=== PATIENT | male | born 1980 | race Asian ===

== ENCOUNTER 2024-09-22 17:12 | Emergency (ER) | payer MEDICAID ==
[~2024-09-22] VITALS: Ht 167.6 cm; Wt 66.8 kg
[2024-09-22 17:18] VITALS: TEMP 98.3
--- NOTE | 2024-09-22 18:20 | Physician Documentation ---
History of Present Illness ~ Chief Complaint: Sore Throat Stated Complaint: ABCESS Time Seen by MD: 18:19 HPI Patient presents to the emergency room with one-week history of sore throat. He has been placed on Augmentin and prednisone an outside clinic. Symptoms continued to worsen he feels swelling in the back of his throat. Subjective fevers. Taking Tylenol for pain. Medication Reconciliation Allergies: Coded Allergies: No Known Allergies (Unverified , 09/22/24) Review of Systems ROS All review of systems negative except as per HPI Physical Exam Vital Signs: Temperature: 98.3, Source: Oral, Heart Rate: 94, Respiratory Rate: 16, BP: 133/84, Pulse Oximetry: 100, Weight: 66.800 Oxygen Flow Rate: 0 Physical Exam General: Patient is awake, alert, oriented x4 in no acute distress Head: Normocephalic and atraumatic. Eyes: Conjunctival normal. EOMI. PERRL. ENT: Mucous membranes moist. Right peritonsillar abscess with swelling crossing the midline. Hot potato voice. Maintaining secretions Neck: Supple, trachea is midline. Chest: Clear to auscultation bilaterally without rales, rhonchi, or wheezes. There is no accessory muscle use or retractions. Cardiac: RRR without murmurs, gallops, or rubs. Procedures Procedures A tonsillar abscess aspiration: Status post informed written consent patient was sat upright position. 18 gauge needle with guard utilized to anesthetize patient's peritonsillar abscess along with gargling viscous lidocaine. 18. Gauge utilized with guard to aspirate x3 with good amount of purulence expressed, a proximally 2 cc. Patient tolerated procedure well without complication. Total time of procedure 10 minutes Progress Results/Orders Results/Orders Orders - TRAVON JC MD Culture Blood (09/22/24 18:20) Completed Orders - TRAVON JC MD Procalcitonin (09/22/24 18:20) Lacticsepsis (09/22/24 18:20) Dexamethasone Inj (Decadron 10mg/Ml Inj) (09/22/24 18:23) Normal Saline 1000ml (Sodium Chloride 10 (09/22/24 18:25) Ceftriaxone/N3y-Lhfzuupy 1gm (Rocephin 1 (09/22/24 18:25) Ketorolac Trometh 15mg/Ml Vial (Toradol (09/22/24 18:25) Ondansetron Inj. (Zofran 4mg/2ml Vial) (09/22/24 18:25) Fentanyl/Pf (Fentanyl 0.05 Mg/Ml Syringe (09/22/24 18:25) Lidocaine 2% Viscous (Xylocaine 2% Visco (09/22/24 18:30) Lidocaine 1% W/Epi 1:100,000 (Xylocaine (09/22/24 18:30) Iohexol 300mg/Ml 100ml Inj. (Omnipaque-3 (09/22/24 18:52) Medications Received in ER Medications (Trade) Dose Ordered Sig/[place] Route PRN Reason Start Time Stop Time Status Last Admin Dose Admin (Decadron 10mg/ ml inj) 10 mg ONCE STAT IV 09/22/24 18:23 09/22/24 18:25 DC 09/22/24 19:11 10 MG Sodium Chloride 1,000 ml @ 1,000 mls/hr ONCE ONCE IV 09/22/24 18:25 09/22/24 19:24 DC 09/22/24 19:24 1,000 MLS/HR Ceftriaxone Sodium 50 ml @ 100 mls/hr ONCE ONCE IV 09/22/24 18:25 09/22/24 18:54 DC 09/22/24 19:24 100 MLS/HR (Toradol injection) 15 mg ONCE ONCE IV 09/22/24 18:25 09/22/24 18:26 DC 09/22/24 19:10 15 MG (Zofran 4mg/2ml vial) 4 mg ONCE ONCE IV 09/22/24 18:25 09/22/24 18:26 DC 09/22/24 19:08 4 MG (fentaNYL 0.05 MG/ML syringe) 25 mcg ONCE ONCE IV 09/22/24 18:25 09/22/24 18:26 DC 09/22/24 19:16 25 MCG Vital Signs 09/22/24 09/22/24 09/22/24 09/22/24 17:18 18:45 18:45 19:10 Temp 98.3 Pulse 94 76 Resp 16 16 16 B/P (MAP) 133/84 117/74 (88) Pulse Ox 100 100 O2 Flow Rate 0 0 09/22/24 19:16 Resp 16 Laboratory Tests Test 09/22/24 17:43 09/22/24 18:29 White Blood Count 10.3 Red Blood Count 4.19 L Hemoglobin 12.5 L Hematocrit 36.9 L Mean Corpuscular Volume 88.1 Mean Corpuscular Hemoglobin 29.9 Mean Corpuscular Hemoglobin Concent 34.0 Red Cell Distribution Width 12.7 Platelet Count 302 Mean Platelet Volume 7.6 Neutrophils (%) (Auto) 73.3 Lymphocytes (%) (Auto) 16.3 L Monocytes (%) (Auto) 9.6 Eosinophils (%) (Auto) 0.4 Basophils (%) (Auto) 0.4 Neutrophils # (Auto) 7.5 Lymphocytes # (Auto) 1.7 Monocytes # (Auto) 1.0 H Eosinophils # (Auto) 0.0 Basophils # (Auto) 0.0 CBC Comment Sodium Level 142 Potassium Level 3.0 *L Chloride Level 104 Carbon Dioxide Level 29.0 Anion Gap 9 Blood Urea Nitrogen 11 Creatinine 0.90 Estimated GFR/1.73 m2 > 90 BUN/Creatinine Ratio 12.2 Glucose Level 157 H Calcium Level 8.8 Total Bilirubin 0.5 Aspartate Amino Transf (AST/SGOT) 20 Alanine Aminotransferase (ALT/SGPT) 35 Alkaline Phosphatase 79 Total Protein 7.4 Albumin 3.4 Globulin 4.0 Albumin/Globulin Ratio 0.9 L Procalcitonin < 0.05 Chemistry Comments Lactic Acid Level 0.9 Medical Decision Making Findings Patient presented to the emergency room with throat swelling and pain. Differentials include but are not limited to retropharyngeal abscess, peritonsillar abscess, strep pharyngitis, herpangina. Physical exam shows significant swelling with hot potato voice therefore CT scan was performed which confirms peritonsillar abscess with no retropharyngeal abscess. Patient is status post abscess aspiration with good results. We will add an additional antibiotic along with some additional steroids. ER precautions discussed. Departure Disposition: HOME / SELF CARE / HOMELESS Impression: Primary Impression: Peritonsillar abscess Condition: Improved Discharge Instructions: Peritonsillar Abscess, [id number] Departure Forms: Excuse form Work or School Excused From: Work Excuse beginning now through the following date: September 24, 2024 May Return but still avoid physical Activity from now until: September 24, 2024 May Return to full physical activity as of: September 24, 2024 Referrals: NO PRIMARY CARE PROVIDER (PCP) Prescriptions Prednisone* (Prednisone*) 20 Mg Tablet 1 TAB PO DAILY for 5 Days, #5 TAB Prov: TRAVON JC MD 09/22/24 Clindamycin HCl (Clindamycin HCl) 300 Mg Capsule 1 CAP PO Q12H for 7 Days, #14 CAP Prov: TRAVON JC MD 09/22/24 Education Educated: Patient Educated regarding: diagnosis, treatment, need for follow up Signature Scribe Signature: No scribe Attestation: The note accurately reflects work and decisions made by me.Travon Jc MD 09/22/24 20:08 TRAVON JC MD September 22, 2024 18:20
[2024-09-22 18:26] LABS: BASOPHILS % (AUTO) 0.4 % (0-1); EOSINOPHILS % (AUTO) 0.4 % (0-6); HEMATOCRIT 36.9 % (42.0-52.0); HEMOGLOBIN 12.5 g/dl (14.0-17.9); LYMPHOCYTES # (AUTO) 1.7 X10'3 (1.1-4.8); LYMPHOCYTES % (AUTO) 16.3 % (21-51); MEAN CORPUSCULAR HEMOGLOBIN 29.9 PG (27.0-31.0); MEAN CORPUSCULAR VOLUME 88.1 FL (78-98); MEAN PLATELET VOLUME 7.6 FL (7.4-10.4); MONOCYTES % (AUTO) 9.6 % (2-12); NEUTROPHILS # (AUTO) 7.5 X10'3 (1.8-7.7); NEUTROPHILS % (AUTO) 73.3 % (42-75); PLATELET COUNT 302 X10'3 (140-440); RED BLOOD COUNT 4.19 X10'6 (4.70-6.10); RED CELL DISTRIBUTION WIDTH 12.7 % (11.5-14.5); WHITE BLOOD COUNT 10.3 X10'3 (4.5-11.0)
[2024-09-22] MEDS: LIDOcaine 1% W/epiNEPHrine 1:100,000 20ml vial IJ ONE (18:30)
[2024-09-22] MEDS: LIDOcaine 2% Viscous 15ml cup MM ONE (18:30)
[2024-09-22 18:31] LABS: ALANINE AMINOTRANSFERASE 35 U/L (12-78); ALBUMIN 3.4 G/DL (3.4-5.0); ALBUMIN/GLOBULIN RATIO 0.9 (1.1-1.5); ALKALINE PHOSPHATASE 79 IU/L (46-116); ANION GAP 9 (8-16); ASPARTATE AMINO TRANSFERASE 20 U/L (10-37); BILIRUBIN,TOTAL 0.5 MG/DL (0.1-1.0); BLOOD UREA NITROGEN 11 MG/DL (7-18); BUN/CREATININE RATIO 12.2 (10.0-20.0); CALCIUM 8.8 MG/DL (8.5-10.1); CHLORIDE 104 MMOL/L (99-107); GLUCOSE 157 MG/DL (70-104); SODIUM 142 MMOL/L (135-145); TOTAL PROTEIN 7.4 G/DL (6.4-8.2); eCRCL 94 ML/MIN; eGFR > 90 ML/MIN
[2024-09-22] MEDS ORDERED: iohexol 300mg/ml 100ml inj. ONE (18:52)
[2024-09-22] MEDS: ondansetron/PF 4mg/2ml inj IV ONE (19:08)
[2024-09-22] MEDS: ketorolac trometh 15mg/ml vial 15 MG/ML ML IV ONE (19:10)
[2024-09-22] MEDS: dexamethasone sod phosphate 10mg/ml inj IV STA (19:11)
[2024-09-22] MEDS: fentaNYL/PF 50MCG/1 ML 2ML syringe IV ONE (19:16)
[2024-09-22] MEDS: CefTRIAXone/D5W-Rocephin 1gm 50 ML IV ONE (19:24)
[2024-09-22] MEDS: normal saline 1000ml 1,000 ML IV ONE (19:24)
--- NOTE | 2024-09-22 19:46 | RADIOLOGY REPORT ---
EXAM: CT CT NECK SOFT TISSUES W/ IV CONTRAST INDICATION: abscess Exam Date: 09/22/2024 06:56 PM COMPARISON: None TECHNIQUE: CT of the neck with intravenous contrast. RADIATION DOSE: CTDIvol: mGy, DLP: mGy*cm CONTRAST: Type of contrast: Contrast injected: ml Contrast ingested: ml FINDINGS: There is a periphery enhancing low-density collection measuring up to 3.3 cm in the right palatine to nsil consistent with an abscess. There is mild narrowing of the oropharyngeal airway. Mildly enlarged lymph nodes are noted in right level 2 presumably reactive. Nasopharynx and larynx are unremarkable. Parotid, submandibular and thyroid glands are unremarkable. Vascular structures of the neck are patent. Visualized lung apices are clear. Limited visualized port ions of the brain are unremarkable. Osseous structures are unremarkable. IMPRESSION: Right palatine tonsillar abscess measuring 3.3 cm.
[2024-09-22] MEDS ORDERED: CLIN300C71 PO (20:07)
[2024-09-22] MEDS ORDERED: PRED20TA PO (20:07)
[2024-09-22] MEDS ORDERED: POTA-207 PO (20:26)
[2024-09-22 20:30] VITALS: BP 126/78; PULSE 74; RESP 16; O2SAT 99
== END 2024-09-22 20:44 | disposition home or self-care (01) ==
LOC: ER 17:13
DX: J36 Peritonsillar abscess (principal)
CPT/HCPCS: 36415; 42700; 70491; 80053; 83605; 84145; 85025; 87040; 96365; 96375; 99285; J0696; J1100; J1885; J2405; J3010; J3490; J7030; Q9967